=== PATIENT | male | born 2005 | race Two or more races ===

== ENCOUNTER → 2025-02-01 | Outpatient (CLI) | payer BC, SELFPAY ==
--- NOTE | 2025-02-01 12:00 | XR_ITS ---
Examination: Abdomen sonogram, complete Date and time of exam: February 01, 2025, 1208 hours INDICATIONS: Epigastric pain and bloating burning sensation noticed beginning 2 weeks ago. Technique: Multiple real-time grayscale transabdominal sonographic images of the abdomen have been obtained. Findings: Normal gallbladder Normal common bile duct 0.3 cm Pancreatic head 2.7 cm Aorta not enlarged Liver 14.7 cm fatty infiltration Normal hepatopedal portal venous flow Patent IVC Right kidney 10.3 cm cortex 1.6 cm Left kidney 11.5 cm cortex 1.7 cm No hydronephrosis Spleen 10.9 cm IMPRESSION: Normal gallbladder Normal common bile duct
== END | disposition home or self-care (01) ==
PROVIDERS: PCP Nurse Practitioner Family; Referring Provider Nurse Practitioner Family; Visit Provider Nurse Practitioner Family
DX: R10.9 Unspecified abdominal pain (principal); K59.00 Constipation, unspecified; M54.50 Low back pain, unspecified; Z00.01 Encounter for general adult medical examination with abnormal findings
CPT/HCPCS: 76700